=== PATIENT | female | born 1995 | race African-American/Black ===

== ENCOUNTER 2017-02-04 04:30 | Emergency (ER) | payer MEDICAID ==
[~2017-02-04] VITALS: Ht 162.6 cm; Wt 54.0 kg
[2017-02-04] MEDS ORDERED: SODIUM CHLORIDE 0.9% 1,000 ML IV ONE (05:01)
[2017-02-04] MEDS ORDERED: BACITRACIN ZINC OINT UDPKT TOP ONE (05:15)
[2017-02-04] MEDS ORDERED: CEFAZOLIN 1000MG PREMIX 50 ML IV ONE (05:15)
[2017-02-04] MEDS ORDERED: TETANUS, DIPHTHERIA, PERTUSSIS VAC/PF 0.5ML (>7YR OLD) IM ONE (05:15)
[2017-02-04] MEDS ORDERED: LIDOCAINE HCL 1% 20ML VIAL (Pyxis) INJ INJ ONE (05:15)
[2017-02-04 05:30] LABS: BASOPHILS % 0.5 % (0.0-2.0); HEMOGLOBIN. 12.4 g/dL (12.0-16.0); LYMPHOCYTES % 31.2 % (20.0-50.0); MEAN CORPUSCULAR HEMOGLOBIN 30.5 pg (28.0-32.0); MEAN CORPUSCULAR VOLUME 88.4 fL (81.0-99.0); MEAN PLATELET VOLUME 8.1 fl (7.4-10.4); MONOCYTES % 9.2 % (2.0-8.0); NEUTROPHILS % 58.1 % (40.0-76.0); PLATELET 195 x1000/uL (130-400); RED BLOOD CELL COUNT 4.07 mill/uL (4.2-5.4); RED CELL DISTRIBUTION WIDTH 13.6 % (11.6-14.6)
[2017-02-04 05:38] LABS: CHLORIDE 109 mEq/L (98-107)
[2017-02-04 05:45] LABS: CARBON DIOXIDE 25 mEq/L (21-32)
[2017-02-04 05:46] LABS: HCG SCREEN NEGATIVE
[2017-02-04 06:01] LABS: ETHANOL BLOOD 214 mg/dL
[2017-02-04 06:27] LABS: *BARBITURATES SCREEN URINE NEGATIVE (NEGATIVE); *BENZODIAZEPINES SCREEN URINE NEGATIVE (NEGATIVE)
[2017-02-04 06:28] LABS: *COCAINE SCREEN URINE NEGATIVE (NEGATIVE); METHADONE URINE SCREEN NEGATIVE (NEGATIVE); OPIATES URINE SCREEN NEGATIVE (NEGATIVE); PHENCYCLIDINE URINE SCREEN NEGATIVE (NEGATIVE)
[2017-02-04 06:31] LABS: *AMPHETAMINES SCREEN URINE PRESUMTIVE POSITIVE (NEGATIVE); CANNABINOID URINE SCREEN PRESUMTIVE POSITIVE (NEGATIVE)
[2017-02-04] MEDS ORDERED: OLANZAPINE 10 MG/VIAL IM STA (07:53)
[2017-02-04] MEDS ORDERED: LORAZEPAM 2MG/ML CPJ IM STA (07:53)
[2017-02-04] MEDS ORDERED: LIDOCAINE HCL 1% 20ML VIAL (Pyxis) INJ ONE (09:50)
[2017-02-04 14:40] VITALS: BP 125/85
== END 2017-02-04 15:10 | disposition home or self-care (01) ==
LOC: ER 04:30
DX: S51.812A Laceration without foreign body of left forearm, initial encounter (principal); F12.90 Cannabis use, unspecified, uncomplicated; X58.XXXA Exposure to other specified factors, initial encounter; Y93.89 Activity, other specified; Y92.89 Other specified places as the place of occurrence of the external cause; Y99.8 Other external cause status
CPT/HCPCS: 12001; 36415; 73200; 80048; 80305; 84703; 85025; 90471; 90715; 96365; 96372; 99285; G0482; J0690; J2060; J3490; J7030; Z7610

== ENCOUNTER 2017-07-01 23:20 | Emergency (ER) | payer MEDICAID ==
[~2017-07-01] VITALS: Ht 165.1 cm; Wt 50.0 kg
[2017-07-02] MEDS ORDERED: LORAZEPAM 1MG TABLET PO ONE (00:15)
[2017-07-02 00:44] LABS: BASOPHILS % 0.2 % (0.0-2.0); EOSINOPHILS % 0.2 % (0.0-5.0); HEMATOCRIT. 36.2 % (36.0-48.0); LYMPHOCYTES % 15.4 % (20.0-50.0); MEAN CORPUSCULAR HEMOGLOBIN 28.6 pg (28.0-32.0); MEAN CORPUSCULAR VOLUME 86.1 fL (81.0-99.0); MEAN PLATELET VOLUME 8.3 fl (7.4-10.4); MONOCYTES % 5.4 % (2.0-8.0); NEUTROPHILS % 78.8 % (40.0-76.0); PLATELET 207 x1000/uL (130-400); RED CELL DISTRIBUTION WIDTH 15.4 % (11.6-14.6)
[2017-07-02 00:53] LABS: CHLORIDE 108 mEq/L (98-107)
[2017-07-02 00:56] LABS: HCG SCREEN NEGATIVE
[2017-07-02 01:01] LABS: ETHANOL BLOOD 88 mg/dL
[2017-07-02 06:07] VITALS: BP 122/69
== END 2017-07-02 06:12 | disposition home or self-care (01) ==
LOC: ER 23:20
DX: E87.6 Hypokalemia (principal); F10.10 Alcohol abuse, uncomplicated; F12.10 Cannabis abuse, uncomplicated; F15.10 Other stimulant abuse, uncomplicated; F41.9 Anxiety disorder, unspecified; Z88.1 Allergy status to other antibiotic agents
CPT/HCPCS: 36415; 80053; 80307; 80329; 84443; 84703; 85025; 99284; G0482